=== PATIENT | female | born 1960 | race Caucasian/White ===

== ENCOUNTER → 2016-09-12 | Outpatient (CLI) | payer BC ==
--- NOTE | 2016-09-14 10:58 | MM ---
Reason for exam: screening (asymptomatic). Last mammogram was performed 1 year and 2 months ago. History: Patient is postmenopausal. Benign excisional biopsy of the left breast, 2001. Physical Findings: A clinical breast exam by your physician is recommended on an annual basis and results should be correlated with mammographic findings. MG Screening Mammo w CAD Bilateral CC and MLO view(s) were taken. Prior study comparison: June 30, 2015, bilateral MG screening mammo w CAD. April 18, 2014, bilateral MG screening mammo w CAD. There are scattered fibroglandular densities. Focal asymmetry in the upper outer left breast. ASSESSMENT: Incomplete: need additional imaging evaluation, BI-RAD 0 RECOMMENDATION: Special view mammogram and ultrasound of the left breast. [facility] will attempt to contact patient to return for supplemental views and ultrasound.
== END | disposition home or self-care (01) ==
LOC: RADMAMWWP 14:10
PROVIDERS: ATTEND Family Medicine
DX: Z12.31 Encounter for screening mammogram for malignant neoplasm of breast (principal)

== ENCOUNTER → 2016-09-22 | Outpatient (CLI) | payer BC ==
--- NOTE | 2016-09-22 09:29 | MM ---
Reason for exam: additional evaluation requested from abnormal screening. Last mammogram was performed less than 1 month ago. History: Patient is postmenopausal. Family history of breast cancer in paternal cousin. Benign excisional biopsy of the left breast, 2001. Took estrogen beginning at age 27. Physical Findings: Nurse did not find any significant physical abnormalities on exam. MG Work Up Mamm w CAD LT CC, MLO, ML, and spot compression CC view(s) were taken of the left breast. Prior study comparison: September 12, 2016, bilateral MG screening mammo w CAD. June 30, 2015, bilateral MG screening mammo w CAD. April 18, 2014, bilateral MG screening mammo w CAD. There are scattered fibroglandular densities. No discrete lesion persists. ASSESSMENT: Incomplete: need additional imaging evaluation, BI-RAD 0 RECOMMENDATION: Ultrasound of the left breast. (recommended by screening/palpable lesion or BB)
--- NOTE | 2016-09-22 09:30 | USB ---
Reason for exam: additional evaluation requested from abnormal screening. History: Patient is postmenopausal. Family history of breast cancer in paternal cousin. Benign excisional biopsy of the left breast, 2001. Took estrogen beginning at age 27. US Breast Workup Limited LT Left breast ultrasound demonstrates a 0.16 x 0.17 x 0.17cm lesion too small to characterize at 3 o'clock. These results were verbally communicated with the patient and result sheet given to the patient on 09/22/16. ASSESSMENT: Benign, BI-RAD 2 RECOMMENDATION: Return to routine screening mammogram schedule for both breasts.
== END | disposition home or self-care (01) ==
LOC: RADMAMWWP 07:02
PROVIDERS: ATTEND Family Medicine
DX: R92.8 Other abnormal and inconclusive findings on diagnostic imaging of breast (principal)
CPT/HCPCS: 76642; G0206

== ENCOUNTER → 2017-11-10 | Outpatient (CLI) | payer BC ==
--- NOTE | 2017-11-14 12:36 | MM ---
Reason for exam: screening (asymptomatic). Last mammogram was performed 1 year and 2 months ago. History: Patient is postmenopausal. Family history of breast cancer in paternal cousin. Benign excisional biopsy of the left breast, 2001. Took estrogen beginning at age 27. Physical Findings: A clinical breast exam by your physician is recommended on an annual basis and results should be correlated with mammographic findings. MG Screening Mammo w CAD Bilateral CC and MLO view(s) were taken. Prior study comparison: September 22, 2016, left breast MG work up mamm w CAD LT. September 12, 2016, bilateral MG screening mammo w CAD. There are scattered fibroglandular densities. Benign calcifications. There is chronic nodularity in the left breast. No significant changes when compared with prior studies. ASSESSMENT: Benign, BI-RAD 2 RECOMMENDATION: Routine screening mammogram of both breasts in 1 year.
== END | disposition home or self-care (01) ==
LOC: RADMAMWWP 07:59
PROVIDERS: ATTEND Family Medicine
DX: Z12.31 Encounter for screening mammogram for malignant neoplasm of breast (principal)
CPT/HCPCS: 77067

== ENCOUNTER → 2020-01-16 | Outpatient (CLI) | payer OTHER ==
--- NOTE | 2020-01-20 10:23 | MM ---
Reason for exam: screening (asymptomatic). Last mammogram was performed 2 years and 2 months ago. History: Patient is postmenopausal. Family history of breast cancer in paternal cousin. Benign excisional biopsy of the left breast, 2001. Took estrogen beginning at age 27. Physical Findings: A clinical breast exam by your physician is recommended on an annual basis and results should be correlated with mammographic findings. MG Screening Mammo w CAD Bilateral CC and MLO view(s) were taken. Prior study comparison: November 10, 2017, bilateral MG screening mammo w CAD. September 22, 2016, left breast MG work up mamm w CAD LT. There are scattered fibroglandular densities. Benign appearing bilateral calcifications. No significant changes when compared with prior studies. ASSESSMENT: Benign, BI-RAD 2 RECOMMENDATION: Routine screening mammogram of both breasts in 1 year.
== END | disposition home or self-care (01) ==
LOC: RADMAMWWP 14:19
PROVIDERS: ATTEND Family Medicine
DX: Z12.39 Encounter for other screening for malignant neoplasm of breast (principal)
CPT/HCPCS: 77067

== ENCOUNTER → 2023-03-01 | Outpatient (CLI) | payer BC, OTHER ==
--- NOTE | 2023-03-07 19:13 | MM ---
Reason for Exam: Screening (asymptomatic). Last mammogram was performed 3 year(s) and 1 month(s) ago. Patient History: Menarche at age 12. First Full-Term at age 19. Left ovary removed at age 32. Right ovary removed at age 32. Hysterectomy at age 27. Postmenopausal. Patient has history of breast feeding. Estrogen, from age 27 until age 34. 2002, Benign Excisional Biopsy on the left side. Paternal cousin had breast cancer. Risk Values: Mireille 5 year model risk: 1.7%. NCI Lifetime model risk: 6.9%. Prior Study Comparison: 09/22/2016 Left Diagnostic Mammogram, LOCATED [facility]IN [facility]. 11/10/2017 Bilateral Screening Mammogram, LOCATED [facility]IN [facility]. 01/16/2020 Bilateral Screening Mammogram, LOCATED [facility]IN [facility]. Tissue Density: There are scattered fibroglandular densities. Findings: Analyzed By CAD. There is no suspicious group of microcalcifications or new suspicious mass in either breast. Overall Assessment: Negative, BI-RAD 1 Management: Screening Mammogram of both breasts in 1 year. . Patient should continue monthly self-breast exams. A clinical breast exam by your physician is recommended on an annual basis. This exam should not preclude additional follow-up of suspicious palpable abnormalities. Note on Mireille scores and lifetime risk: 1. A Mireille score greater than 3% is considered moderate risk. If this is the case, consider specialist referral to assess eligibility for a risk reducing agent. 2. If overall lifetime risk for the development of breast cancer is 20% or higher, the patient may qualify for future screening with alternating mammogram and breast MRI. Electronically signed and approved by: Afua Bernard M.D. Radiologist
== END | disposition home or self-care (01) ==
LOC: RADMAMWWP 14:40
PROVIDERS: ATTEND Family Medicine
DX: Z12.31 Encounter for screening mammogram for malignant neoplasm of breast (principal); Z80.3 Family history of malignant neoplasm of breast; Z78.0 Asymptomatic menopausal state
CPT/HCPCS: 77063; 77067